=== PATIENT | female | born 1940 | race Caucasian/White ===

== ENCOUNTER → 2024-08-26 13:39 | Outpatient (BNVA) | payer MEDICARE, BC, SELFPAY | PROVIDERS: Visit Provider Podiatrist Foot & Ankle Surgery | DX: M79.672 Pain in left foot (principal); G57.62 Lesion of plantar nerve, left lower limb | CPT/HCPCS: 64455; 73630; 99204; J1100; J3301; J3490 ==

== ENCOUNTER → 2024-10-07 10:48 | Outpatient (BNVA) | payer MEDICARE, BC, SELFPAY | PROVIDERS: Visit Provider Podiatrist Foot & Ankle Surgery | DX: L60.3 Nail dystrophy (principal); G57.62 Lesion of plantar nerve, left lower limb | CPT/HCPCS: 11750; 64455; J1100; J3301; J3490; J9999 ==

== ENCOUNTER → 2024-12-08 12:12 | Outpatient (BNVA) | payer MEDICARE, BC, SELFPAY | PROVIDERS: PCP Family Medicine; Visit Provider Podiatrist Foot & Ankle Surgery | DX: M79.672 Pain in left foot (principal); G57.62 Lesion of plantar nerve, left lower limb; M72.2 Plantar fascial fibromatosis | CPT/HCPCS: 99213 ==